=== PATIENT | male | born 1955 | race Caucasian/White ===

== ENCOUNTER → 2018-01-17 | Outpatient (CLI) | payer BC | END | disposition home or self-care (01) | LOC: PCVCIMAG 13:51 | DX: I35.8 Other nonrheumatic aortic valve disorders (principal); I49.9 Cardiac arrhythmia, unspecified; E66.9 Obesity, unspecified; I47.1 Supraventricular tachycardia | CPT/HCPCS: 93306 ==

== ENCOUNTER → 2018-03-15 | Outpatient (CLI) | payer BC | END | disposition home or self-care (01) | LOC: PCVCIMAG 16:34 | DX: I35.8 Other nonrheumatic aortic valve disorders (principal); E11.9 Type 2 diabetes mellitus without complications; I71.2 Thoracic aortic aneurysm, without rupture; R06.09 Other forms of dyspnea; I47.1 Supraventricular tachycardia; I10 Essential (primary) hypertension | CPT/HCPCS: 93325; 93351 ==

== ENCOUNTER → 2019-07-25 | Outpatient (CLI) | payer BC ==
--- NOTE | 2019-07-25 15:53 | PCVCIMAG ---
APPROVED REPORT Study performed: 07/25/2019 13:22:27 EXAM: Comprehensive 2D, Doppler, and color-flow Echocardiogram Patient Location: Echo lab Status: routine BSA: 2.26 HR: 70 bpmBP: 160/80 mmHg Rhythm: NSR Other Information Study Quality: Technically Difficult Risk Factors: Cardiac Risk Factors: HTN, Hyperlipidemia, DM Indications Bent[place] procedure. #[address] [place] mechanical valve. Hx of SVT. Ablation 2D Dimensions IVSd: 21.70 (7-11mm)LVOT Diam: 23.49 (18-24mm) LVDd: 48.03 mm PWd: 13.88 (7-11mm)Ascending Ao: 38.56 (22-36mm) LVDs: 40.41 (25-40mm) Left Atrium: 38.25 (27-40mm) Aortic Root: 36.79 mm LV Single Plane 2CH: 60.12 % Volumes Left Atrial Volume (Systole) Single Plane 4CH: 37.62 mLSingle Plane 2CH: 26.79 mL LA ESV Index: 15.00 mL/m2 Aortic Valve AoV Peak Lester.: 1.97 m/s AO Peak Gr.: 15.45 mmHgLVOT Max P.75 mmHg AO Mean Gr.: 9.58 mmHg AO V2 Mean: 1.46 m/sLVOT Max V: 1.09 m/s AO V2 VTI: 34.88 cm RJ Vmax: 2.40 cm2 Mitral Valve E/A Ratio: 0.7 MV Decel. Time: 254.92 ms MV E Max Lester.: 0.69 m/s MV A Lester.: 1.00 m/s TDI E/Lateral E': 8.63E/Medial E': 11.50 Medial E' Lester.: 0.06 m/s Lateral E' Lester.: 0.08 m/s Pulmonary Valve PV Peak Gr.: 3.30 mmHg Pulmonary Vein P Vein S: 0.54 m/sP Vein A: 0.41 m/s P Vein D: 0.42 m/sP Vein A Dur.: 110.7 msec P Vein S/D Ratio: 1.29 Left Ventricle The left ventricle is normal size. There is normal LV segmental wall motion. There is normal left ventricular wall thickness. Left ventricular systolic function is normal. The left ventricular ejection fraction is within the normal range. LVEF is 55%. Right Ventricle The right ventricle is normal size. The right ventricular systolic function is normal. Atria The left atrium size is normal. The right atrium size is normal. Aortic Valve Mechanical valve is seen. Normal functioning #[address] Mechanical tilting disc valve in the aortic position. No aortic regurgitation is present. There is no aortic valvular stenosis. Mitral Valve The mitral valve is normal in structure. There is no mitral valve regurgitation noted. No evidence of mitral valve stenosis. Tricuspid Valve The tricuspid valve is normal in structure. There is no tricuspid valve regurgitation noted. Pulmonic Valve The pulmonary valve is normal in structure. There is no pulmonic valvular regurgitation. Great Vessels The aortic root is normal in size. IVC is normal in size and collapses >50% with inspiration. Pericardium There is no pericardial effusion. <Conclusion> The left ventricle is normal size. LVEF is 55%. The right ventricle is normal size. The left atrium size is normal. Mechanical valve is seen. Normal functioning #[address] [place] Mechanical tilting disc valve in the aortic position. No aortic regurgitation is present. There is no mitral valve regurgitation noted. There is no tricuspid valve regurgitation noted. The pulmonary valve is normal in structure. The aortic root is normal in size. There is no pericardial effusion.
== END | disposition home or self-care (01) ==
LOC: PCVCIMAG 13:22
PROVIDERS: ATTEND Internal Medicine Cardiovascular Disease
DX: E11.9 Type 2 diabetes mellitus without complications (principal); I10 Essential (primary) hypertension; E78.5 Hyperlipidemia, unspecified
CPT/HCPCS: 93306